=== PATIENT | female | born 1980 | race Caucasian/White ===

== ENCOUNTER 2022-09-04 10:08 | Outpatient (CLI) | payer OTHER, SELFPAY ==
--- NOTE | 2022-09-04 10:15 | CRLHL7_ITS ---
For Patients: As a result of the Century Cures Act, medical imaging exams and procedure reports are released immediately into your electronic medical record. You may view this report before your referring provider. If you have questions, please contact your health care provider. BILATERAL SCREENING MAMMOGRAM WITH COMPUTER-AIDED DETECTION AND TOMOSYNTHESIS TECHNIQUE: CC and MLO views were obtained. These mammographic images have been obtained using full-field digital technique. These mammographic images were interpreted with the benefit of computer-aided detection. Breast Tomosynthesis was used in this interpretation. COMPARISON FILM: 05/01/21. FINDINGS: The breasts are heterogeneously dense, which may obscure small masses IMPRESSION: There is no radiographic evidence for malignancy. ASSESSMENT: BI-RADS Category 1: Negative RECOMMENDATION: Routine screening mammogram in 1 year. A lay language report of this examination will be provided to the patient. Yohan Ceballos M.D. Diagnostic Radiologist [email or web address] Transcribed: 7:52 p.m. JEFRY/Dictated by: Yohan Ceballos MD @ 09/04/2022 12:04:00 PM (Electronically Signed)
== END 2022-09-04 10:09 | disposition home or self-care (01) ==
LOC: MAMMO 10:09
PROVIDERS: Visit Provider Obstetrics & Gynecology
DX: Z12.31 Encounter for screening mammogram for malignant neoplasm of breast (principal); R92.2 Inconclusive mammogram
CPT/HCPCS: 77063; 77067

== ENCOUNTER 2022-10-06 09:51 | Outpatient (CLI) | payer OTHER, SELFPAY ==
[2022-10-06 11:50] LABS: Cholesterol* 157 mg/dL (90-199); HDL Cholesterol* 45 mg/dL (>=50); LDL Cholesterol Calculated 97 mg/dL (<100); Triglycerides* 76 mg/dL (40-149)
== END 2022-10-06 09:52 | disposition home or self-care (01) ==
LOC: NFLDREF 09:52
PROVIDERS: Visit Provider Obstetrics & Gynecology
DX: Z13.6 Encounter for screening for cardiovascular disorders (principal)
CPT/HCPCS: 80061

== ENCOUNTER 2023-10-14 09:01 | Outpatient (CLI) | payer OTHER, SELFPAY ==
--- NOTE | 2023-10-14 09:15 | CRLHL7_ITS ---
For Patients: As a result of the Cures Act, medical imaging exams and procedure reports are released immediately into your electronic medical record. You may view this report before your referring provider. If you have questions, please contact your health care provider. BILATERAL SCREENING MAMMOGRAM WITH COMPUTER-AIDED DETECTION AND TOMOSYNTHESIS TECHNIQUE: CC and MLO views were obtained. These mammographic images have been obtained using full-field digital technique. These mammographic images were interpreted with the benefit of computer-aided detection. Breast tomosynthesis was used in this interpretation. COMPARISON FILM: 09/04/22, 05/01/21. FINDINGS: The breasts are heterogeneously dense, which may obscure small masses. IMPRESSION: There is no radiographic evidence for malignancy. ASSESSMENT: BI-RADS Category 1: Negative RECOMMENDATION: Routine screening mammogram in 1 year. A lay language report of this examination will be provided to the patient. YOHAN FLORES M.D. Diagnostic Radiologist [email or web address] Transcribed: 10/14/2023, 6:[address]/Dictated by: Yohan Flores MD @ 10/14/2023 1:03:00 PM (Electronically Signed)
== END 2023-10-14 09:02 | disposition home or self-care (01) ==
LOC: MAMMO 09:02
PROVIDERS: Visit Provider Obstetrics & Gynecology
DX: Z12.31 Encounter for screening mammogram for malignant neoplasm of breast (principal); R92.2 Inconclusive mammogram
CPT/HCPCS: 77063; 77067

== ENCOUNTER 2024-01-15 08:31 | Outpatient (CLI) | payer OTHER, SELFPAY | END 2024-01-15 08:32 | disposition home or self-care (01) | LOC: NFLDREF 12:00 | PROVIDERS: Visit Provider Obstetrics & Gynecology | DX: Z13.1 Encounter for screening for diabetes mellitus (principal); Z13.220 Encounter for screening for lipoid disorders | CPT/HCPCS: 80061; 82947 ==

== ENCOUNTER 2024-09-27 10:30 | Outpatient (CLI) | payer OTHER, SELFPAY ==
--- NOTE | 2024-09-27 10:45 | CRLHL7_ITS ---
For Patients: As a result of the Cures Act, medical imaging exams and procedure reports are released immediately into your electronic medical record. You may view this report before your referring provider. If you have questions, please contact your health care provider. BILATERAL DIAGNOSTIC MAMMOGRAM WITH COMPUTER-AIDED DETECTION AND TOMOSYNTHESIS LEFT BREAST ULTRASOUND CLINICAL HISTORY: LEFT breast lump. COMPARISON: 10/14/23, 09/04/22, 05/01/21. TECHNIQUE: Digital BILATERAL mammogram in four projections with computer-aided detection. Tomosynthesis was used in this interpretation. Real-time ultrasound imaging of LEFT breast with imaging documentation. BREAST COMPOSITION: There are scattered areas of fibroglandular density. FINDINGS: 3D CC/MLO BILATERAL mammogram images submitted. No suspicious masses or architectural distortion. No suspicious calcifications. No adenopathy. Targeted LEFT breast ultrasound performed in the area of concern within the LEFT axillary tail region. Normal subcutaneous tissues are present. No suspicious findings. IMPRESSION: No evidence of malignancy. RECOMMENDATIONS: Annual BILATERAL screening mammography. A lay language report of this examination will be provided to the patient. BI-RADS Category 2: Benign Dictated by Yohan Ceballos MD @ 09/27/2024 12:05:37 PM /sp SP/Dictated by: Yohan Ceballos MD @ 09/27/2024 12:05:00 PM (Electronically Signed)
--- NOTE | 2024-09-27 11:15 | CRLHL7_ITS ---
For Patients: As a result of the Century Cures Act, medical imaging exams and procedure reports are released immediately into your electronic medical record. You may view this report before your referring provider. If you have questions, please contact your health care provider. PLEASE SEE BILATERAL BREAST DIAGNOSTIC MAMMOGRAM PERFORMED SAME DAY. CRL:sp SP/Dictated by: Yohan Ceballos MD @ 09/27/2024 12:05:00 PM (Electronically Signed)
== END 2024-09-27 10:31 | disposition home or self-care (01) ==
LOC: MAMMO 10:31
PROVIDERS: Visit Provider Obstetrics & Gynecology
DX: N63.25 Unspecified lump in the left breast, overlapping quadrants (principal)
CPT/HCPCS: 76642; 77066; G0279

== ENCOUNTER 2025-09-13 08:23 | Outpatient (CLI) | payer OTHER, SELFPAY ==
--- NOTE | 2025-09-13 09:15 | CRLHL7_ITS ---
For Patients: As a result of the Century Cures Act, medical imaging exams and procedure reports are released immediately into your electronic medical record. You may view this report before your referring provider. If you have questions, please contact your health care provider. INDICATION: BILATERAL SCREENING MAMMOGRAM, ASYMPTOMATIC 45 Y/O FEMALE COMPARISON: 09/27/2024, 10/14/2023, 09/04/2022 TECHNIQUE: Digital mammogram in CC and MLO projections including computer-aided detection (CAD) and tomosynthesis. BREAST COMPOSITION: The breasts are heterogeneously dense, which may obscure small masses. FINDINGS: No suspicious findings. ASSESSMENT: BI-RADS 1 Negative RECOMMENDATION: Annual screening mammogram. A lay language report of this examination will be provided to the patient. Dictated by: Yohan Ceballos MD @ 09/13/2025 10:52:12 (Electronically Signed)
== END 2025-09-13 08:24 | disposition home or self-care (01) ==
LOC: MAMMO 08:23
PROVIDERS: Visit Provider Registered Nurse
DX: Z12.31 Encounter for screening mammogram for malignant neoplasm of breast (principal); R92.333 Mammographic heterogeneous density, bilateral breasts
CPT/HCPCS: 77063; 77067